=== PATIENT | male | born 1955 | race Caucasian/White ===

== ENCOUNTER 2017-05-18 06:18 | Day surgery (SDC) | payer OTHER ==
[2017-05-18] MEDS ORDERED: PROPOFOL 40 ML (07:46)
[2017-05-18] MEDS ORDERED: LIDOCAINE 2% (SDV) 5 ML INJ (07:46)
== END 2017-05-18 12:08 | disposition home or self-care (01) ==
LOC: GIL 06:18
DX: Z12.11 Encounter for screening for malignant neoplasm of colon (principal); D12.5 Benign neoplasm of sigmoid colon; K64.8 Other hemorrhoids; I10 Essential (primary) hypertension; F17.200 Nicotine dependence, unspecified, uncomplicated
CPT/HCPCS: 45380; 88305